=== PATIENT | female | born 1960 | race Caucasian/White ===

== ENCOUNTER 2018-05-14 11:59 | Emergency (ER) | payer BC ==
[2018-05-14] MEDS ORDERED: Sodium Chloride 0.9% 1,000 ML IV ONE (12:43)
[2018-05-14] MEDS ORDERED: Ondansetron 4 MG/2 ML SDV IVPUSH ONE (12:43)
--- NOTE | 2018-05-14 12:48 | EDM.PDOC ---
ED HPI GENERAL MEDICAL PROBLEM - General Chief Complaint: Abdominal Pain Stated Complaint: ABDOMINAL PAIN Time Seen by Provider: 05/14/18 12:13 Source of Information: Reports: Patient History Limitations: Reports: No Limitations - History of Present Illness INITIAL COMMENTS - FREE TEXT/NARRATIVE: HISTORY AND PHYSICAL: History of present illness: Patient is a 57-year-old female who presents to the emergency room with complaints of epigastric and right flank pain. This pain has been ongoing for the past 3 days but appears to be worse after eating food. She denies any fever, chills, chest pain, shortness of breath or cough. Denies any nausea, vomiting, diarrhea, constipation or dysuria. Has not noted any blood in her urine or stools. Review of systems: As per history of present illness and below otherwise all systems reviewed and negative. Past medical history: As per history of present illness and as reviewed below otherwise noncontributory. Surgical history: As per history of present illness and as reviewed below otherwise noncontributory. Social history: No reported history of drug or alcohol abuse. Family history: As per history of present illness and as reviewed below otherwise noncontributory. Physical exam: General: Well-developed and well-nourished 57-year-old female. Alert and oriented. Nontoxic appearing and in no acute distress. HEENT: Atraumatic, normocephalic, pupils equal and reactive bilaterally, negative for conjunctival pallor or scleral icterus, mucous membranes moist, throat clear, neck supple, nontender, trachea midline. No drooling or trismus noted. No meningeal signs Lungs: Clear to auscultation, breath sounds equal bilaterally, chest nontender. Heart: S1S2, regular rate and rhythm without overt murmur Abdomen: Soft, nondistended, epigastric tenderness. Negative for masses or hepatosplenomegaly. Right sided costovertebral tenderness. Pelvis: Stable nontender. Genitourinary: Deferred. Rectal: Deferred. Skin: Intact, warm, dry. No lesions or rashes noted. Extremities: Atraumatic, negative for cords or calf pain. Neurovascular unremarkable. Neuro: Awake, alert, oriented. Cranial nerves II through XII unremarkable. Cerebellum unremarkable. Motor and sensory unremarkable throughout. Exam nonfocal. Notes: Diagnostics: CBC, CMP, amylase, lipase, UA, CT abdomen and pelvis, h.pylori Therapeutics: IV fluid, Zofran, Toradol Prescription: Tramadol (#10) Impression: Abdominal Pain Plan: 1. Please avoid any foods that may trigger or abdominal pain. 2. Tylenol and/or ibuprofen as needed for pain management. 3. As we discussed please call the general surgeon next week for follow-up appointment for further evaluation and management if you continued to have this pain. See her primary care provider in the next 1-2 days. Return to the ED as needed and as discussed. Definitive disposition and diagnosis as appropriate pending reevaluation and review of above. Middle Abdominal Pain Score (Numeric/FACES): 5 - Related Data Allergies Allergy/AdvReac Type Severity Reaction Status Date / Time No Known Allergies Allergy Verified 05/14/18 12:27 Home Meds: Home Meds Cholecalciferol (Vitamin D3) [Vitamin D3] 1 cap PO DAILY 05/14/18 [History] Losartan/Hydrochlorothiazide [Hyzaar 100-25 Tablet] 1 tab PO DAILY 05/14/18 [ History] Magnesium 1 tab PO DAILY 05/14/18 [History] Multivits,Ca,Minerals/Iron/FA [Women's Daily Formula Caplet] 1 tab PO DAILY [History] Potassium 1 tab PO DAILY 05/14/18 [History] Past Medical History Cardiovascular History: Reports: Hypertension Musculoskeletal History: Reports: Fibromyalgia - Infectious Disease History Infectious Disease History: Reports: Chicken Pox Social & Family History - Family History Family Medical History: Noncontributory - Tobacco Use Smoking Status *Q: Never Smoker - Caffeine Use Caffeine Use: Reports: None - Recreational Drug Use Recreational Drug Use: No ED ROS GENERAL - Review of Systems Review Of Systems: ROS reveals no pertinent complaints other than HPI. ED EXAM, GI/ABD - Physical Exam Exam: See Below (See dictation) Course - Vital Signs Last Recorded V/S: Last Vital Signs Temp 97.6 F 05/14/18 12:23 Pulse 98 05/14/18 12:23 Resp 18 05/14/18 12:23 BP 136/87 05/14/18 12:23 Pulse Ox 98 05/14/18 12:23 - Orders/Labs/Meds Orders: Active Orders 24 hr Category Date Time Status EKG 12 Lead [EKG Documentation Completion] [RC] STAT Care 05/14/18 12:33 Active EKG Documentation Completion [RC] STAT Care 05/14/18 12:44 Active Abdomen Pelvis w Cont [CT] Stat Exams 05/14/18 12:44 Taken Labs: Laboratory Tests 05/14/18 05/14/18 05/14/18 Range/Units 13:01 13:01 13:01 WBC 8.16 (4.0-11.0) K/uL RBC 4.71 (4.30-5.90) M/uL Hgb 13.7 (12.0-16.0) g/dL Hct 41.2 (36.0-46.0) % MCV 87.5 (80.0-98.0) fL MCH 29.1 (27.0-32.0) pg MCHC 33.3 (31.0-37.0) g/dL RDW Std Deviation 43.7 (28.0-62.0) fl RDW Coeff of Quang 14 (11.0-15.0) % Plt Count 245 (150-400) K/uL MPV 9.80 (7.40-12.00) fL Neut % (Auto) 61.0 (48.0-80.0) % Lymph % (Auto) 29.4 (16.0-40.0) % Bosque % (Auto) 7.8 (0.0-15.0) % Eos % (Auto) 1.6 (0.0-7.0) % Baso % (Auto) 0.2 (0.0-1.5) % Neut # (Auto) 5.0 (1.4-5.7) K/uL Lymph # (Auto) 2.4 (0.6-2.4) K/uL Bosque # (Auto) 0.6 (0.0-0.8) K/uL Eos # (Auto) 0.1 (0.0-0.7) K/uL Baso # (Auto) 0.0 (0.0-0.1) K/uL Nucleated RBC % 0.0 /100WBC Nucleated RBCs # 0 K/uL Sodium 141 (136-145) mmol/L Potassium 3.3 L (3.5-5.1) mmol/L Chloride 103 (98-107) mmol/L Carbon Dioxide 31.2 (21.0-32.0) mmol/L BUN 16 (7.0-18.0) mg/dL Creatinine 1.0 (0.6-1.0) mg/dL Est Cr Clr Drug Dosing 59.51 mL/min Estimated GFR (MDRD) 57.6 ml/min Glucose 104 (74-106) mg/dL Calcium 9.1 (8.5-10.1) mg/dL Total Bilirubin 0.3 (0.2-1.0) mg/dL AST 18 (15-37) IU/L ALT 33 (14-63) IU/L Alkaline Phosphatase 64 (46-116) U/L Troponin I < 0.050 (0.000-0.056) ng/mL Total Protein 7.8 (6.4-8.2) g/dL Albumin 3.5 (3.4-5.0) g/dL Globulin 4.3 H (2.0-3.5) g/dL Albumin/Globulin Ratio 0.8 L (1.3-2.8) Amylase 43 (25-115) U/L Lipase 219 (73-393) U/L Urine Color Urine Appearance Urine pH (5.0-8.0) Ur Specific Aurora (1.001-1.035) Urine Protein (NEGATIVE) mg/dL Urine Glucose (UA) (NEGATIVE) mg/dL Urine Ketones (NEGATIVE) mg/dL Urine Occult Blood (NEGATIVE) Urine Nitrite (NEGATIVE) Urine Bilirubin (NEGATIVE) Urine Urobilinogen (<2.0) EU/dL Ur Leukocyte Esterase (NEGATIVE) Urine RBC (0-2/HPF) Urine WBC (0-5/HPF) Ur Epithelial Cells (NONE-FEW) Urine Bacteria (NEGATIVE) H. pylori IgG Antibody NEGATIVE (NEG) 05/14/18 Range/Units 13:38 WBC (4.0-11.0) K/uL RBC (4.30-5.90) M/uL Hgb (12.0-16.0) g/dL Hct (36.0-46.0) % MCV (80.0-98.0) fL MCH (27.0-32.0) pg MCHC (31.0-37.0) g/dL RDW Std Deviation (28.0-62.0) fl RDW Coeff of Quang (11.0-15.0) % Plt Count (150-400) K/uL MPV (7.40-12.00) fL Neut % (Auto) (48.0-80.0) % Lymph % (Auto) (16.0-40.0) % Bosque % (Auto) (0.0-15.0) % Eos % (Auto) (0.0-7.0) % Baso % (Auto) (0.0-1.5) % Neut # (Auto) (1.4-5.7) K/uL Lymph # (Auto) (0.6-2.4) K/uL Bosque # (Auto) (0.0-0.8) K/uL Eos # (Auto) (0.0-0.7) K/uL Baso # (Auto) (0.0-0.1) K/uL Nucleated RBC % /100WBC Nucleated RBCs # K/uL Sodium (136-145) mmol/L Potassium (3.5-5.1) mmol/L Chloride (98-107) mmol/L Carbon Dioxide (21.0-32.0) mmol/L BUN (7.0-18.0) mg/dL Creatinine (0.6-1.0) mg/dL Est Cr Clr Drug Dosing mL/min Estimated GFR (MDRD) ml/min Glucose (74-106) mg/dL Calcium (8.5-10.1) mg/dL Total Bilirubin (0.2-1.0) mg/dL AST (15-37) IU/L ALT (14-63) IU/L Alkaline Phosphatase (46-116) U/L Troponin I (0.000-0.056) ng/mL Total Protein (6.4-8.2) g/dL Albumin (3.4-5.0) g/dL Globulin (2.0-3.5) g/dL Albumin/Globulin Ratio (1.3-2.8) Amylase (25-115) U/L Lipase (73-393) U/L Urine Color YELLOW Urine Appearance CLEAR Urine pH 6.5 (5.0-8.0) Ur Specific Aurora 1.010 (1.001-1.035) Urine Protein NEGATIVE (NEGATIVE) mg/dL Urine Glucose (UA) NEGATIVE (NEGATIVE) mg/dL Urine Ketones NEGATIVE (NEGATIVE) mg/dL Urine Occult Blood NEGATIVE (NEGATIVE) Urine Nitrite NEGATIVE (NEGATIVE) Urine Bilirubin NEGATIVE (NEGATIVE) Urine Urobilinogen 0.2 (<2.0) EU/dL Ur Leukocyte Esterase NEGATIVE (NEGATIVE) Urine RBC 0-1 (0-2/HPF) Urine WBC NONE SEEN (0-5/HPF) Ur Epithelial Cells FEW (NONE-FEW) Urine Bacteria FEW (NEGATIVE) H. pylori IgG Antibody (NEG) Meds: Medications Discontinued Medications Generic Name Dose Route Start Last Admin Trade Name Freq PRN Reason Stop Dose Admin Sodium Chloride 1,000 mls @ 999 mls/hr 05/14/18 12:43 05/14/18 12:54 Normal Saline IV 05/14/18 13:43 999 mls/hr STAT ONE Administration Iopamidol 90 ml 05/14/18 14:09 05/14/18 14:09 Isovue Multipack-370 (76%) IVPUSH 05/14/18 14:10 90 ml ONETIME STA Administration Ondansetron HCl 4 mg 05/14/18 12:43 05/14/18 12:56 Zofran IVPUSH 05/14/18 12:44 4 mg ONETIME ONE Administration Potassium Chloride 40 meq 05/14/18 13:45 05/14/18 13:52 Klor-Con M20 PO 05/14/18 13:46 40 meq ONETIME ONE Administration Departure - Departure Time of Disposition: 14:55 Disposition: Home, Self-Care 01 Clinical Impression: Abdominal pain - Discharge Information Instructions: Abdominal Pain, Adult, [id number] Referrals: Adam Barriga MD [Primary Care Provider] - Forms: ED Department Discharge Additional Instructions: The following information is given to patients seen in the emergency department who are being discharged to home. This information is to outline your options for follow-up care. We provide all patients seen in our emergency department with a follow-up referral. The need for follow-up, as well as the timing and circumstances, are variable depending upon the specifics of your emergency department visit. If you don't have a primary care physician on staff, we will provide you with a referral. We always advise you to contact your personal physician following an emergency department visit to inform them of the circumstance of the visit and for follow-up with them and/or the need for any referrals to a consulting specialist. The emergency department will also refer you to a specialist when appropriate. This referral assures that you have the opportunity for follow-up care with a specialist. All of these measure are taken in an effort to provide you with optimal care, which includes your follow-up. Under all circumstances we always encourage you to contact your private physician who remains a resource for coordinating your care. When calling for follow-up care, please make the office aware that this follow-up is from your recent emergency room visit. If for any reason you are refused follow-up, please contact the [facility] Emergency Department at and asked to speak to the emergency department charge nurse. [facility] [address], [place] [address] [facility] Special[facility] - General Surgery Professional Building [address] [place] [address], [address] [place] [address] 1. Please avoid any foods that may trigger or abdominal pain. 2. Tylenol and/or ibuprofen as needed for pain management. 3. As we discussed please call the general surgeon next week for follow-up appointment for further evaluation and management if you continued to have this pain. See her primary care provider in the next 1-2 days. Return to the ED as needed and as discussed. - My Orders Last 24 Hours: My Active Orders 05/14/18 12:33 EKG 12 Lead [EKG Documentation Completion] [RC] STAT 05/14/18 12:44 EKG Documentation Completion [RC] STAT Abdomen Pelvis w Cont [CT] Stat - Assessment/Plan Last 24 Hours: My Active Orders 05/14/18 12:33 EKG 12 Lead [EKG Documentation Completion] [RC] STAT 05/14/18 12:44 EKG Documentation Completion [RC] STAT Abdomen Pelvis w Cont [CT] Stat
[2018-05-14 13:30] LABS: CHLORIDE,CL 103 mmol/L (98-107); SODIUM,NA 141 mmol/L (136-145)
[2018-05-14] MEDS ORDERED: Potassium Chloride 20 MEQ Tab.ER PO ONE (13:45)
[2018-05-14] MEDS ORDERED: Iopamidol 755 MG/ML 500 ML Multipack Bottle IVPUSH STA (14:09)
--- NOTE | 2018-05-15 16:06 | CT ---
EXAM DATE: 05/14/18 PATIENT'S AGE: 57 Patient: GURVINDER VELEZ Facility: [place], [place] Site . Site : [id number] Study: CT Abdomen/Pelvis [id number]/[id number] 2:12:09 PM Ordering Physician: Doctor Damon Final Report: INDICATION: Epigastric pain. TECHNIQUE: CT of the abdomen and pelvis performed after IV injection of 90 mL of Isovue- 370. FINDINGS: Mild linear atelectasis or scarring in the left lung base. Moderate diffuse fatty infiltration of liver with focal areas of fatty sparing. Few very small cysts in the kidneys. Small hiatal hernia. Gallbladder is somewhat contracted and its wall has mild increased enhancement. Very mild inflammatory stranding and fluid in the mid abdominal retroperitoneum posterior to the pancreas and along the 3rd portion of duodenum. This is not the typical location for a fluid and inflammatory stranding related to pancreatitis. This could be related to a nonspecific focal edematous or inflammatory process. The 3rd portion of duodenum is normal. Consider correlation to lipase. If is pancreatitis, the abnormalities are localized to the pancreatic head and uncinate process. The appendix is normal. Remainder negative. IMPRESSION: 1. Small amount of fluid and inflammatory or edematous stranding is seen in the mid abdominal retroperitoneum along the posterior aspect of the pancreatic head and uncinate process and 3rd portion of the duodenum. This is not the typical location for such fluid and stranding related to pancreatitis however I cannot exclude the possibility of localized inflammation/pancreatitis of the pancreatic head and uncinate process. Suggest correlation with lipase. The 3rd portion the duodenum in this region appears normal. 2. Moderate diffuse fatty infiltration of the liver 3. Small hiatal hernia. Other findings as above. Please note that all CT scans at this facility use dose modulation, iterative reconstruction, and/or weight-based dosing when appropriate to reduce radiation dose to as low as reasonably achievable. Dictated by Joel Raman MD @ May 14 2018 2:49PM (Electronic Signature) Report Signed by Proxy. [facility]
== END 2018-05-14 15:09 | disposition home or self-care (01) ==
LOC: MW.ED 11:59
DX: R10.13 Epigastric pain (principal); I10 Essential (primary) hypertension
CPT/HCPCS: 36415; 74177; 80053; 81001; 82150; 83690; 84484; 85025; 86677; 93005; 96361; 96374; 99284; A9270; J2405; J7040; Q9967